=== PATIENT | male | born 2000 | race Caucasian/White ===

== ENCOUNTER 2022-09-28 22:17 | Emergency (ER) | payer SELFPAY ==
[~2022-09-28] VITALS: Ht 185.4 cm; Wt 73.4 kg
[2022-09-28] MEDS ORDERED: LACTATED RINGERS 1,000 ML IV ONE (23:30)
[2022-09-28] MEDS ORDERED: ONDANSETRON 4 MG/2 ML (SDV) Z0FRAN IVP ONE (23:30)
[2022-09-28 23:53] LABS: BASOPHILS # (AUTO) 0.1 10^3/uL (0.0-0.1); BASOPHILS % (AUTO) 1 % (0-10); EOSINOPHILS # (AUTO) 0.4 10^3/uL (0.0-0.3); EOSINOPHILS % (AUTO) 4 % (0-10); HEMATOCRIT 45 % (40-54); HEMOGLOBIN 15.1 g/dL (13.3-17.7); LYMPHOCYTES # (AUTO) 2.8 10^3/uL (1.0-4.0); LYMPHOCYTES % (AUTO) 29 % (12-44); MEAN CORPUSCULAR HEMOGLOBIN 32 pg (25-34); MEAN CORPUSCULAR HGB CONC 34 g/dL (32-36); MEAN CORPUSCULAR VOLUME 95 fL (80-99); MEAN PLATELET VOLUME 10.6 fL (9.0-12.2); MONOCYTES # (AUTO) 0.8 10^3/uL (0.0-1.0); MONOCYTES % (AUTO) 8 % (0-12); NEUTROPHILS # (AUTO) 5.6 10^3/uL (1.8-7.8); NEUTROPHILS % (AUTO) 58 % (42-75); PLATELET COUNT 244 10^3/uL (130-400); WHITE BLOOD COUNT 9.6 10^3/uL (4.3-11.0)
[2022-09-29 00:08] LABS: ALBUMIN 4.4 GM/DL (3.2-4.5); CHLORIDE 106 MMOL/L (98-107); SODIUM 141 MMOL/L (135-145)
[2022-09-29 00:09] LABS: AMYLASE 33 U/L (25-125); CALCIUM 9.3 MG/DL (8.5-10.1)
[2022-09-29 00:10] LABS: GLUCOSE 77 MG/DL (70-105)
[2022-09-29 00:11] LABS: CARBON DIOXIDE 24 MMOL/L (21-32); TOTAL PROTEIN 7.3 GM/DL (6.4-8.2)
--- NOTE | 2022-09-29 00:11 | ED General ---
General Chief Complaint: Abdominal/GI Problems Stated Complaint: VOMITING/HEADACHE/FEVER Nursing Triage Note: Patient c/o Lt. lower Abd. pain with nausea and vomiting x 3 days. Patient c/o headache that started tonight around 2100. Patient denies any diarrhea, but states he has not really been able to go x 3 days. Patient denies any fevers. Patient states he has been able to drink fluids and states he "gags" when he chews food. Patient denies taking any IBU or Tylenol. Patient denies any blood in vomit or stool. Source of Information: Patient (VERY FLAT AFFECT AND GIVES VERY MINIMAL INFORMATION) History of Present Illness Date Seen by Provider: Sep 28, 2022 Time Seen by Provider: 22:32 Initial Comments PT ARRIVES VIA POV FROM HOME PT STATES FOR THE LAST 3 DAYS HE HAS HAD: -SUBJECTIVE FEVER -NAUSEA. NO VOMITING. NO DIARRHEA. NO CONSTIPATION BEGAN HAVING HEADACHE AT 2100 TONIGHT NO COUGH/CONGESTION OR SORE THROAT NO URINARY SYMPTOMS AND VOIDING A NORMAL AMOUNT. DOES C/O LLQ PAIN HAS NOT TAKEN ANYTHING FOR SYMPTOMS AT ANY TIME. PT HAS BEEN DRINKING FLUIDS, BUT HAS NOT EATEN TODAY--NO APPETITE NO KNOWN SICK CONTACTS PT DENIES ANY PRIOR ABDOMINAL SURGERIES OR GI PROBLEMS DENIES ANY CHRONIC MEDICAL PROBLEMS OR DAILY MEDICATIONS PT SMOKES 1 PPD, DRINKS A FIFTH OF ALCOHOL EVERY 1-2 DAYS--LAST ETOH WAS SUNDAY. HISTORY OF IV METH USE. CLAIMS NO RECENT USE PCP: NONE Allergies and Home Medications Allergies Coded Allergies: No Known Drug Allergies (Unverified , 09/28/22) Patient Home Medication List Home Medication List Reviewed: Yes Ondansetron (Ondansetron Odt) 4 Mg Tab.rapdis, 4 MG PO Q4H Prescribed by: COMPA ROCHE on 09/29/22 0144 Review of Systems Review of Systems Constitutional: see HPI, fever EENTM: no symptoms reported Respiratory: no symptoms reported Cardiovascular: no symptoms reported Gastrointestinal: see HPI, abdominal pain; No constipation, No diarrhea; loss of appetite, nausea; No vomiting Genitourinary: no symptoms reported Musculoskeletal: no symptoms reported; No back pain Skin: no symptoms reported Psychiatric/Neurological: See HPI, Headache Hematologic/Lymphatic: No Symptoms Reported Immunological/Allergic: no symptoms reported Past Rleupzo-Bvkvgh-Oyyxcl Hx Patient Social History Tobacco Use?: Yes Tobacco type used: Cigarettes Smoking Status: Current Everyday Smoker Use of E-Cig and/or Vaping dev: No Substance use?: Yes Substance type: Methamphetamine Additional substance use comme: IV METH Alcohol Use?: Yes (FIFTH OF HARD LIQUOR EVERY 1-2 DAYS) Alcohol type: Hard Liquor Alcohol Frequency: Daily Immunizations Up To Date Influenza Vaccine Up-to-Date: No; Not Current Past Medical History Surgeries: No Respiratory: No Cardiac: No Neurological: No Genitourinary: No Gastrointestinal: No Musculoskeletal: No Endocrine: No HEENT: No Cancer: No Psychosocial: Yes (SUBSTANCE ABUSE) Integumentary: No Blood Disorders: No Physical Exam Vital Signs Vital Signs - First Documented 09/28/22 22:38 Temp 36.8 Pulse 90 Resp 12 B/P (MAP) 157/98 (117) O2 Delivery Room Air Capillary Refill : Height, Weight, BMI Height: '" Weight: lbs. oz. kg; 21.00 BMI Method: General Appearance: No Apparent Distress, WD/WN, Other (FLAT AFFECT. DOES NOT APPEAR ILL OR TO BE IN ANY DISCOMFORT OR DISTRESS. WALKS UPRIGHT AND MOVES WITHOUT DIFFICULTY; REEKS OF CIGARETTES) HEENT: No Scleral Icterus (L), No Scleral Icterus (R) Neck: Normal Inspection Respiratory: Normal Breath Sounds, No Accessory Muscle Use, No Respiratory Distress Cardiovascular: Regular Rate, Rhythm, No Murmur Gastrointestinal: Normal Bowel Sounds, No Organomegaly, No Pulsatile Mass, Non Tender, Soft; No Distended, No Guarding, No Hernia, No Mass, No Rebound; Tenderness (LLQ) Back: Normal Inspection, No CVA Tenderness Extremity: Normal Inspection Neurologic/Psychiatric: Alert, Oriented x3, No Motor/Sensory Deficits, sheep sticker II- XII Norm as Tested Skin: Normal Color, Warm/Dry; No Rash Progress/Results/Core Measures Suspected Sepsis SIRS Temperature: Pulse: 90 Respiratory Rate: 12 Laboratory Tests 09/28/22 23:40: White Blood Count 9.6 Blood Pressure 157 /98 Mean: 117 Laboratory Tests 09/28/22 23:40: Creatinine 0.79, Platelet Count 244, Total Bilirubin 0.3 Results/Orders Lab Results Laboratory Tests Test 09/28/22 00:33 09/28/22 22:42 09/28/22 23:40 Range/Units Urine Color PALE YELLOW Urine Clarity CLEAR Urine pH 8.0 5-9 Urine Specific [place] 1.010 L 1.016-1.022 Urine Protein NEGATIVE NEGATIVE Urine Glucose (UA) NEGATIVE NEGATIVE Urine Ketones NEGATIVE NEGATIVE Urine Nitrite NEGATIVE NEGATIVE Urine Bilirubin NEGATIVE NEGATIVE Urine Urobilinogen NEG < = 1.0 MG/DL Urine Leukocyte Esterase NEGATIVE NEGATIVE Urine RBC (Auto) NEGATIVE NEGATIVE Urine RBC NONE /HPF Urine WBC NONE /HPF Urine Crystals PRESENT H /LPF Urine Amorphous Sediment FEW VLADIMIR PHOSPHATE H /LPF Urine Bacteria NEGATIVE /HPF Urine Casts NONE /LPF Urine Mucus NEGATIVE /LPF Urine Culture Indicated NO Urine Opiates Screen NEGATIVE NEGATIVE Urine Oxycodone Screen NEGATIVE NEGATIVE Urine Methadone Screen NEGATIVE NEGATIVE Urine Propoxyphene Screen NEGATIVE NEGATIVE Urine Barbiturates Screen NEGATIVE NEGATIVE Ur Tricyclic Antidepressants Screen NEGATIVE NEGATIVE Urine Phencyclidine Screen NEGATIVE NEGATIVE Urine Amphetamines Screen NEGATIVE NEGATIVE Urine Methamphetamines Screen NEGATIVE NEGATIVE Urine Benzodiazepines Screen NEGATIVE NEGATIVE Urine Cocaine Screen NEGATIVE NEGATIVE Urine Cannabinoids Screen NEGATIVE NEGATIVE Influenza Type A (RT-PCR) Not Detected Not Detecte Influenza Type B (RT-PCR) Not Detected Not Detecte SARS-CoV-2 RNA (RT-PCR) Not Detected Not Detecte White Blood Count 9.6 4.3-11.0 10^3/uL Red Blood Count 4.71 4.30-5.52 10^6/uL Hemoglobin 15.1 13.3-17.7 g/dL Hematocrit 45 40-54 % Mean Corpuscular Volume 95 80-99 fL Mean Corpuscular Hemoglobin 32 25-34 pg Mean Corpuscular Hemoglobin Concent 34 32-36 g/dL Red Cell Distribution Width 12.0 10.0-14.5 % Platelet Count 244 130-400 10^3/uL Mean Platelet Volume 10.6 9.0-12.2 fL Immature Granulocyte % (Auto) 0 % Neutrophils (%) (Auto) 58 42-75 % Lymphocytes (%) (Auto) 29 12-44 % Monocytes (%) (Auto) 8 0-12 % Eosinophils (%) (Auto) 4 0-10 % Basophils (%) (Auto) 1 0-10 % Neutrophils # (Auto) 5.6 1.8-7.8 10^3/uL Lymphocytes # (Auto) 2.8 1.0-4.0 10^3/uL Monocytes # (Auto) 0.8 0.0-1.0 10^3/uL Eosinophils # (Auto) 0.4 H 0.0-0.3 10^3/uL Basophils # (Auto) 0.1 0.0-0.1 10^3/uL Immature Granulocyte # (Auto) 0.0 0.0-0.1 10^3/uL Sodium Level 141 135-145 MMOL/L Potassium Level 4.0 3.6-5.0 MMOL/L Chloride Level 106 98-107 MMOL/L Carbon Dioxide Level 24 21-32 MMOL/L Anion Gap 11 5-14 MMOL/L Blood Urea Nitrogen 9 7-18 MG/DL Creatinine 0.79 0.60-1.30 MG/DL Estimat Glomerular Filtration Rate 127 BUN/Creatinine Ratio 11 Glucose Level 77 70-105 MG/DL Calcium Level 9.3 8.5-10.1 MG/DL Corrected Calcium 9.0 8.5-10.1 MG/DL Total Bilirubin 0.3 0.1-1.0 MG/DL Aspartate Amino Transf (AST/SGOT) 18 5-34 U/L Alanine Aminotransferase (ALT/SGPT) 19 0-55 U/L Alkaline Phosphatase 59 40-136 U/L Total Protein 7.3 6.4-8.2 GM/DL Albumin 4.4 3.2-4.5 GM/DL Amylase Level 33 25-125 U/L Lipase 18 8-78 U/L Serum Alcohol < 10 <10 MG/DL My Orders Orders - COMPA ROCHE DO Covid 19 Inhouse Test (09/28/22 22:32) Influenza A And B By Pcr (09/28/22 22:32) Ed Iv/Invasive Line Start (09/28/22 23:28) Monitor-Rhythm Ecg Trace Only (09/28/22 23:28) Alcohol (09/28/22 23:28) Amylase (09/28/22 23:28) Cbc With Automated Diff (09/28/22 23:28) Comprehensive Metabolic Panel (09/28/22 23:28) Drug Screen Stat (Urine) (09/28/22 23:28) Lipase (09/28/22 23:28) Ua Culture If Indicated (09/28/22 23:28) Ed Iv/Invasive Line Start (09/28/22 23:28) Lactated Ringers (Lr 1000 Ml Iv Solution (09/28/22 23:30) Ondansetron Injection (Zofran Injectio (09/28/22 23:30) Ct Abd/Pelvis Wo(Kidney Stone) (09/28/22 23:43) Medications Given in ED Current Medications Medications Dose Ordered Sig/Sanya Route Start Time Stop Time Status Last Admin Dose Admin Lactated Ringer's 1,000 ml @ 0 mls/hr Q0M ONCE IV 09/28/22 23:30 09/28/22 23:31 DC 09/28/22 23:43 999 MLS/HR Ondansetron HCl 4 mg ONCE ONCE IVP 09/28/22 23:30 09/28/22 23:31 DC 09/28/22 23:43 4 MG Vital Signs/I&O 09/28/22 22:38 Temp 36.8 Pulse 90 Resp 12 B/P (MAP) 157/98 (117) O2 Delivery Room Air Capillary Refill : Blood Pressure Mean: 117 Progress Note : Progress Note PPE WORN PLACED IN ISOLATION ROOM COVID AND FLU TESTING DONE LABS UNREMARKABLE--CBC AND CMP, AMYLASE / LIPASE ALL NORMAL ETOH NEGATIVE UDS NEGATIVE UA CLEAR COVID AND FLU TESTS NEGATIVE Diagnostic Imaging Comments CT ABDOMEN/PELVIS--PER [facility] VIA FAX AT Reviewed: Reviewed by Me Departure Impression Primary Impression: Nonspecific syndrome suggestive of viral illness Disposition: HOME, SELF-CARE Condition: Stable Departure-Patient Inst. Decision time for Depature: 01:40 Referrals: NO,LOCAL PHYSICIAN (PCP) Primary Care Physician Patient Instructions: Viral Syndrome (DC) Add. Discharge Instructions: CLEAR LIQUIDS--WATER, BROTH, JELLO, GATORADE BRATS DIET--BANANAS, RICE, APPLESAUCE, TOAST, SALTINES TYLENOL AND MOTRIN NEEDED FOR PAIN OR FEVER FOLLOW UP WITH IN 2-3 DAYS IF NO BETTER All discharge instructions reviewed with patient and/or family. Voiced understanding. Scripts Ondansetron (Ondansetron Odt) 4 Mg Tab.rapdis 4 MG PO Q4H for Nausea/Vomiting, #10 TAB Prov: COMPA ROCHE DO 09/29/22 COMPA ROCHE DO Sep 29, 2022 00:11
[2022-09-29 00:12] LABS: BILIRUBIN,TOTAL 0.3 MG/DL (0.1-1.0)
[2022-09-29 00:14] LABS: ALKALINE PHOSPHATASE 59 U/L (40-136); CREATININE SERUM 0.79 MG/DL (0.60-1.30); GFR ESTIMATED 127
[2022-09-29 00:15] LABS: BUN/CREATININE RATIO 11
[2022-09-29 00:17] LABS: ALANINE AMINOTRANSFERASE 19 U/L (0-55)
[2022-09-29 00:18] LABS: LIPASE 18 U/L (8-78)
[2022-09-29 00:53] LABS: BACTERIA,URINE NEGATIVE /HPF; BILIRUBIN,URINE NEGATIVE (NEGATIVE); CLARITY,URINE CLEAR; COLOR,URINE PALE YELLOW; GLUCOSE, URINE (UA) NEGATIVE (NEGATIVE); KETONES,URINE NEGATIVE (NEGATIVE); LEUKOCYTE ESTERASE ,URINE NEGATIVE (NEGATIVE); NITRITE,URINE NEGATIVE (NEGATIVE); PROTEIN,URINE NEGATIVE (NEGATIVE)
[2022-09-29 00:54] LABS: AMORPHOUS SEDIMENT,UR FEW AMOR PHOSPHATE /LPF
[2022-09-29 00:55] LABS: AMPHETAMINE SCREEN, URINE NEGATIVE (NEGATIVE); BARBITURATE SCREEN URINE NEGATIVE (NEGATIVE); BENZODIAZEPINES SCREEN URINE NEGATIVE (NEGATIVE); CANNABINOID SCREEN, URINE NEGATIVE (NEGATIVE); COCAINE SCREEN URINE NEGATIVE (NEGATIVE); METHADONE STAT NEGATIVE (NEGATIVE); OPIATE SCREEN URINE NEGATIVE (NEGATIVE); OXYCODONE STAT NEGATIVE (NEGATIVE); PROPOXYPHENE STAT NEGATIVE (NEGATIVE); TRICYCLIC ANTIDEPRESSANTS SCRE NEGATIVE (NEGATIVE)
[2022-09-29] MEDS ORDERED: ONDA4TAB11 PO (01:44)
[2022-09-29 01:49] VITALS: BP 122/80
--- NOTE | 2022-09-29 08:31 | Diagnostic Imaging Report ---
PROCEDURE: CT abdomen and pelvis without contrast. TECHNIQUE: Multiple contiguous axial images were obtained through the abdomen and pelvis without the use of intravenous contrast. Auto Exposure Controls were utilized during the CT exam to meet ALARA standards for radiation dose reduction. Date: September 28, 2022. Indication: 22-year-old male, flank and abdominal pain. Comparison: None. Findings: The visualized portions of the lung bases are clear. The heart is not enlarged. There is no identified pericardial effusion. The liver is unremarkable in size and contour. The gallbladder is unremarkable. There is no identified biliary ductal dilation. Noncontrast pancreatic parenchymal assessment is unremarkable. The spleen is normal in size. The adrenal glands are unremarkable. Noncontrast evaluation of the renal parenchyma is unremarkable. The urinary collecting systems are not distended. There is no identified renal or ureteral stone. Urinary bladder is unremarkable. The intestinal tract is not distended. There is no evidence of acute appendicitis. The appendix is best seen on axial image 125 and adjacent sequential images. There is no free intraperitoneal air. There is no drainable fluid collection. There is no free fluid in the abdomen or pelvis. There is no identified abnormally enlarged lymph node in the abdomen or pelvis meeting CT size criteria for adenopathy. There is no identified acute bony abnormality. Impression: 1. No identified acute abnormality in the abdomen or pelvis. Agree with the provided preliminary report. Dictated by: Dictated on workstation # [id number]
== END 2022-09-29 01:49 | disposition home or self-care (01) ==
LOC: ER 22:21
DX: R10.32 Left lower quadrant pain (principal); R11.0 Nausea; R51.9 Headache, unspecified; R50.9 Fever, unspecified; F17.210 Nicotine dependence, cigarettes, uncomplicated; Z28.311 Partially vaccinated for COVID-19; Z20.822 Contact with and (suspected) exposure to COVID-19
CPT/HCPCS: 74176; 80053; 80306; 81000; 82150; 83690; 85025; 87636; 93041; 96361; 96374; 99284; G0480; 36415; 80320

== ENCOUNTER 2022-11-12 05:25 | Emergency (ER) | payer SELFPAY ==
[~2022-11-12] VITALS: Ht 182.9 cm; Wt 72.6 kg
[~2022-11-12 05:25] MED LIST: ONDA4TAB11 PO
[2022-11-12] MEDS ORDERED: KETOROLAC INJ 30 MG/ML VIAL IVP STA (05:40)
[2022-11-12] MEDS ORDERED: LACTATED RINGERS 1,000 ML 1,000 ML IV ONE (05:45)
[2022-11-12] MEDS ORDERED: ASPIRIN 81 MG CHEWABLE TABLET PO ONE (05:45)
--- NOTE | 2022-11-12 05:47 | ED Chest Pain ---
General Chief Complaint: Cardiac/General Problems Stated Complaint: CP Source: patient (COMPA ROCHE DO) History of Present Illness Date Seen by Provider: Nov 12, 2022 Time Seen by Provider: 05:32 Initial Comments PT ARRIVES VIA POV FROM HOME C/O LEFT CHEST PAIN RADIATING DOWN LEFT ARM PAIN BEGAN 20-30 MINUTES AGO, WHILE TRYING TO GO TO SLEEP NO SHORTNESS OF BREATH NO SWEATS NO NAUSEA/VOMITING NO DIZZINESS OR SYNCOPE NO SWELLING IN LEGS/FEET OR PAIN IN CALVES NO COUGH, FEVER OR RECENT ILLNESS NO INJURY OR UNUSUAL ACTIVITY PT WORKS NIGHTS AT [email or web address]--HE DID NOT WORK [employer]. NO NEW DUTIES AT WORK OR AT HOME PT IS RIGHT HANDED NOTHING WORSENS OR IMPROVES PAIN HAS NOT TAKEN ANYTHING FOR PAIN NO HISTORY OF SIMILAR NO CHRONIC MEDICAL PROBLEMS NO SURGERIES PT SMOKES CIGARETTES AND VAPES NICOTINE. HE DENIES ALCOHOL USE. PT HAS LONG HISTORY OF METHAMPHETAMINE USE, STATES HE "RELAPSED" 3 DAYS AGO--SMOKES IT. DENIES IV DRUG USE. PCP: NONE (COMPA ROCHE DO) Allergies and Home Medications Allergies Coded Allergies: No Known Drug Allergies (Unverified , 09/28/22) Patient Home Medication List Home Medication List Reviewed: Yes (IMAN ANGELES DO) Ondansetron (Ondansetron Odt) 4 Mg Tab.rapdis, 4 MG PO Q4H Prescribed by: COMPA ROCHE on 09/29/22 0144 Review of Systems Review of Systems Constitutional: no symptoms reported EENTM: No Symptoms Reported Respiratory: No Symptoms Reported Cardiovascular: See HPI Gastrointestinal: No Symptoms Reported Genitourinary: No Symptoms Reported Musculoskeletal: see HPI Skin: no symptoms reported Psychiatric/Neurological: No Symptoms Reported Endocrine: No Symptoms Reported Hematologic/Lymphatic: No Symptoms Reported (COMPA ROCHE DO) Past Fhulkin-Iwpois-Wvfmva Hx Patient Social History Tobacco Use?: Yes Tobacco type used: Cigarettes Smoking Status: Current Everyday Smoker Smokeless Tobacco Frequency: Current Everyday User Substance use?: Yes Substance type: Methamphetamine Alcohol Use?: No (COMPA ROCHE DO) Past Medical History Surgeries: No Respiratory: No Cardiac: No Neurological: No Genitourinary: No Gastrointestinal: No Musculoskeletal: No Endocrine: No HEENT: No Cancer: No Psychosocial: Yes (SUBSTANCE ABUSE) Integumentary: No Blood Disorders: No (COMPA ROCHE DO) Family Medical History SOCIAL HISTORY: -SMOKES CIGARETTES AND ALSO VAPES NICOTINE -ETOH--DENIES USE -DRUGS--SMOKES METHAMPETAMINES (COMPA ROCHE ) Physical Exam Vital Signs Vital Signs - First Documented 11/12/22 05:30 Temp 36.8 Pulse 84 Resp 16 B/P (MAP) 148/101 (117) Pulse Ox 99 O2 Delivery Room Air (BRIDGETTEIMAN Kranthi ) Vital Signs Capillary Refill : (COMPA ROCHE DO) Height, Weight, BMI Height: '" Weight: lbs. oz. kg; 21.00 BMI Method: General Appearance: No Apparent Distress, WD/WN HEENT: PERRL/EOMI Neck: Full Range of Motion, Normal Inspection, Non Tender, Supple Respiratory: Normal Breath Sounds, No Accessory Muscle Use, No Respiratory Distress, Other (LEFT UPPER CHEST TENDERNESS--PALPATION REPRODUCES PAIN ) Cardiovascular: Regular Rate, Rhythm, No Edema, No JVD, No Murmur, Normal Peripheral Pulses Gastrointestinal: Normal Bowel Sounds, No Organomegaly, Non Tender, Soft Extremity: Normal Capillary Refill, Normal Range of Motion, No Calf Tenderness, No Pedal Edema, Other (DIFFUSE LEFT ARM TENDERNESS. NO SWELLING OR DISCOLORATION OR EVIDENCE OF TRAUMA. MOTOR/SENSORY/VASCULAR INTACT ) Neurologic/Psychiatric: Alert, Oriented x3, No Motor/Sensory Deficits, Normal Mood/Affect, dining room helper II-XII Norm as Tested Skin: Normal Color, Warm/Dry; No Rash (COMPA ROCHE DO) Progress/Results/Core Measures Results/Orders Lab Results Laboratory Tests Test 11/12/22 05:40 Range/Units White Blood Count 9.3 4.3-11.0 10^3/uL Red Blood Count 4.85 4.30-5.52 10^6/uL Hemoglobin 15.6 13.3-17.7 g/dL Hematocrit 46 40-54 % Mean Corpuscular Volume 94 80-99 fL Mean Corpuscular Hemoglobin 32 25-34 pg Mean Corpuscular Hemoglobin Concent 34 32-36 g/dL Red Cell Distribution Width 12.3 10.0-14.5 % Platelet Count 266 130-400 10^3/uL Mean Platelet Volume 10.3 9.0-12.2 fL Immature Granulocyte % (Auto) 0 % Neutrophils (%) (Auto) 51 42-75 % Lymphocytes (%) (Auto) 34 12-44 % Monocytes (%) (Auto) 10 0-12 % Eosinophils (%) (Auto) 4 0-10 % Basophils (%) (Auto) 1 0-10 % Neutrophils # (Auto) 4.8 1.8-7.8 10^3/uL Lymphocytes # (Auto) 3.2 1.0-4.0 10^3/uL Monocytes # (Auto) 0.9 0.0-1.0 10^3/uL Eosinophils # (Auto) 0.3 0.0-0.3 10^3/uL Basophils # (Auto) 0.1 0.0-0.1 10^3/uL Immature Granulocyte # (Auto) 0.0 0.0-0.1 10^3/uL Erythrocyte Sedimentation Rate 1 0-15 MM/HR Prothrombin Time 13.4 12.2-14.7 SEC INR Comment 1.0 0.8-1.4 Activated Partial Thromboplast Time 33 24-35 SEC D-Dimer 0.27 0.00-0.49 UG/ML Sodium Level 138 135-145 MMOL/L Potassium Level 3.8 3.6-5.0 MMOL/L Chloride Level 104 98-107 MMOL/L Carbon Dioxide Level 23 21-32 MMOL/L Anion Gap 11 5-14 MMOL/L Blood Urea Nitrogen 8 7-18 MG/DL Creatinine 1.08 0.60-1.30 MG/DL Estimat Glomerular Filtration Rate 98 BUN/Creatinine Ratio 7 Glucose Level 99 70-105 MG/DL Calcium Level 8.7 8.5-10.1 MG/DL Corrected Calcium 8.4 L 8.5-10.1 MG/DL Magnesium Level 1.9 1.6-2.4 MG/DL Total Bilirubin 0.4 0.1-1.0 MG/DL Aspartate Amino Transf (AST/SGOT) 18 5-34 U/L Alanine Aminotransferase (ALT/SGPT) 18 0-55 U/L Alkaline Phosphatase 70 40-136 U/L Total Creatine Kinase 178 30-200 U/L Creatine Kinase MB 1.6 <6.6 NG/ML Myoglobin 35.3 10.0-92.0 NG/ML Troponin I < 0.028 <0.028 NG/ML C-Reactive Protein High Sensitivity 0.06 0.00-0.50 MG/DL Total Protein 7.0 6.4-8.2 GM/DL Albumin 4.4 3.2-4.5 GM/DL Amylase Level 36 25-125 U/L Lipase 21 8-78 U/L Serum Alcohol < 10 <10 MG/DL (IMAN ANGELES DO) Medications Given in ED Current Medications Medications Dose Ordered Sig/Sanya Route Start Time Stop Time Status Last Admin Dose Admin Aspirin 324 mg ONCE ONCE PO 11/12/22 05:45 11/12/22 05:46 DC 11/12/22 06:03 324 MG Lactated Ringer's 1,000 ml @ 0 mls/hr Q0M ONCE IV 11/12/22 05:45 11/12/22 05:46 DC 11/12/22 06:03 0 MLS/HR (IMAN ANGELES DO) Vital Signs/I&O 11/12/22 11/12/22 05:30 07:12 Temp 36.8 Pulse 84 67 Resp 16 16 B/P (MAP) 148/101 (117) 126/76 Pulse Ox 99 98 O2 Delivery Room Air Room Air (IMAN ANGELES DO) Progress Progress Note : Progress Note 0600--CARE TURNED OVER TO DR. ANGELES, ALL STUDIES PENDING. (COMPA ROCHE DO) Initial ECG Impression Date: Nov 12, 2022 Initial ECG Impression Time: 05:36 Initial ECG Rate: 81 Initial ECG Rhythm: Normal Sinus Initial ECG Intervals: Normal Initial ECG Impression: Normal Comment INTERPRETED BY ME (COMPA ROCHE DO) Departure Communication (Admissions) Patient's heart score is 1. He has a nonischemic EKG, negative troponin and exam, vital signs are reassuring. The remainder of his chemistry is unremarkable as is his CBC. Of inability reviewed his chest x-ray this is negative for any acute cardiopulmonary abnormality. We discharged home in stable condition with supportive care. Did estate planning counselor on methamphetamine cessation. (IMAN ANGELES DO) Impression Primary Impression: Atypical chest pain Disposition: HOME, SELF-CARE Condition: Stable Departure-Patient Inst. Referrals: NO,LOCAL PHYSICIAN (PCP/Family) Primary Care Physician Patient Instructions: Chest Pain, Adult ED Add. Discharge Instructions: You are seen in the emergency department today for chest pain. No emergent medical conditions are identified today. Believe this is unlikely to be coming from your heart. It does seem to be coming from the muscles and soft tissues in your chest. I recommend use ibuprofen and Tylenol as needed for pain. Return to the emergency department for any severe concerns. Continue to work on cessation of methamphetamine use. All discharge instructions reviewed with patient and/or family. Voiced understanding. COMPA ROCHE DO Nov 12, 2022 05:47 IMAN ANGELES DO Nov 12, 2022 06:59
[2022-11-12 05:51] LABS: BASOPHILS # (AUTO) 0.1 10^3/uL (0.0-0.1); BASOPHILS % (AUTO) 1 % (0-10); EOSINOPHILS # (AUTO) 0.3 10^3/uL (0.0-0.3); EOSINOPHILS % (AUTO) 4 % (0-10); HEMATOCRIT 46 % (40-54); HEMOGLOBIN 15.6 g/dL (13.3-17.7); LYMPHOCYTES # (AUTO) 3.2 10^3/uL (1.0-4.0); LYMPHOCYTES % (AUTO) 34 % (12-44); MEAN CORPUSCULAR HEMOGLOBIN 32 pg (25-34); MEAN CORPUSCULAR HGB CONC 34 g/dL (32-36); MEAN CORPUSCULAR VOLUME 94 fL (80-99); MEAN PLATELET VOLUME 10.3 fL (9.0-12.2); MONOCYTES # (AUTO) 0.9 10^3/uL (0.0-1.0); MONOCYTES % (AUTO) 10 % (0-12); NEUTROPHILS # (AUTO) 4.8 10^3/uL (1.8-7.8); NEUTROPHILS % (AUTO) 51 % (42-75); PLATELET COUNT 266 10^3/uL (130-400); WHITE BLOOD COUNT 9.3 10^3/uL (4.3-11.0)
[2022-11-12 06:01] LABS: PROTHROMBIN TIME PATIENT 13.4 SEC (12.2-14.7)
[2022-11-12 06:02] LABS: ALBUMIN 4.4 GM/DL (3.2-4.5); CHLORIDE 104 MMOL/L (98-107)
[2022-11-12 06:03] LABS: POTASSIUM 3.8 MMOL/L (3.6-5.0); SODIUM 138 MMOL/L (135-145)
[2022-11-12 06:04] LABS: AMYLASE 36 U/L (25-125); CALCIUM 8.7 MG/DL (8.5-10.1); FIBRIN DEGRADATION PRODUCTS 0.27 UG/ML (0.00-0.49)
[2022-11-12 06:05] LABS: GLUCOSE 99 MG/DL (70-105)
[2022-11-12 06:06] LABS: CARBON DIOXIDE 23 MMOL/L (21-32)
[2022-11-12 06:07] LABS: BILIRUBIN,TOTAL 0.4 MG/DL (0.1-1.0); ERYTHROCYTE SEDIMENTATION RATE 1 MM/HR (0-15)
[2022-11-12 06:08] LABS: ALKALINE PHOSPHATASE 70 U/L (40-136)
[2022-11-12 06:09] LABS: CREATININE SERUM 1.08 MG/DL (0.60-1.30); GFR ESTIMATED 98
[2022-11-12 06:10] LABS: BUN/CREATININE RATIO 7
[2022-11-12 06:11] LABS: MAGNESIUM 1.9 MG/DL (1.6-2.4)
[2022-11-12 06:12] LABS: ALANINE AMINOTRANSFERASE 18 U/L (0-55)
[2022-11-12 06:13] LABS: CREATINE KINASE 178 U/L (30-200); LIPASE 21 U/L (8-78)
[2022-11-12 06:19] LABS: CREATINE KINASE MB 1.6 NG/ML (<6.6)
[2022-11-12 07:12] VITALS: BP 126/76
--- NOTE | 2022-11-12 07:45 | Diagnostic Imaging Report ---
EXAMINATION: Chest, 1 view. HISTORY: Chest pain. COMPARISON: None available. FINDINGS: Heart size and pulmonary vasculature are normal. The lungs are clear without consolidation, pleural effusion, or pneumothorax. The osseous structures are intact. IMPRESSION: No acute radiographic abnormality in the chest. Dictated by: Dictated on workstation # [id number]
== END 2022-11-12 07:12 | disposition home or self-care (01) ==
LOC: EDUNIT# 05:25 → ER 05:27
DX: R07.89 Other chest pain (principal); F17.210 Nicotine dependence, cigarettes, uncomplicated; F17.290 Nicotine dependence, other tobacco product, uncomplicated
CPT/HCPCS: 71045; 80053; 82150; 82550; 82553; 83690; 83735; 83874; 84484; 85025; 85379; 85610; 85652; 85730; 86141; 93005; 93041; 99284; G0480; 36415; 80320